=== PATIENT | female | born 1945 | race Caucasian/White ===

== ENCOUNTER 2024-01-06 19:41 | Inpatient (IN) | payer OTHER ==
[2024-01-06] MEDS ORDERED: Ondansetron PF 4 MG/2 ML Vial ONE (20:17)
[2024-01-06 20:37] LABS: #Basophils 0.1 thou/uL (0.0-0.2); #Eosinphils 0.1 thou/uL (0.0-0.7); #Monocytes 0.4 thou/uL (0.11-0.59); #Neutrophils 14.2 thou/uL (1.40-6.50); %Basophils 0.3 % (0.0-1.0); %Eosinophils 0.7 % (0.0-10.0); %Monocytes 2.5 % (0.0-10.0); Hematocrit 39.2 % (36.0-47.0); Hemoglobin 13.2 g/dL (12.0-16.0); Mean Corpuscular HGB CONC 33.7 g/dL (32.0-36.0); Mean Corpuscular Hemoglobin 31.7 pg (27.0-31.0); Mean Platelet Volume 10.1 fL (7.4-10.4); Platelet Count 233 10x3/uL (130-400); RBC Distribution Width 12.1 % (11.5-14.5); Red Blood Cell (RBC) Count 4.17 mill/uL (4.20-5.40); White Blood Cell (WBC) Count 17.4 10x3/uL (4.8-10.8)
[2024-01-06 21:05] LABS: ALT (SGPT) 20 U/L (8-55); AST (SGOT) 31 U/L (5-34); Alkaline Phosphatase 95 U/L (40-110); Anion Gap 18 mmol/L (10-20); BUN (Urea Nitrogen) 21 mg/dL (9.8-20.1); Bilirubin, Total 1.1 mg/dL (0.2-1.2); Calc. Creatinine Clearance 0 mL/min (70-130); Calcium 8.8 mg/dL (7.8-10.44); Carbon Dioxide 18 mmol/L (23-31); Chloride 105 mmol/L (98-107); Estimated GFR 56; Globulin 3.1 g/dL (2.4-3.5); Glucose 213 mg/dL (83-110); Potassium 3.3 mmol/L (3.5-5.1); Protein, Total 7.1 g/dL (5.8-8.1); Sodium 138 mmol/L (136-145)
[2024-01-06] MEDS ORDERED: Acetaminophen 325 MG TAB PO PRN (22:04)
[2024-01-06] MEDS ORDERED: Ondansetron ODT 4 MG TAB PO PRN (22:04)
[2024-01-06] MEDS ORDERED: Loperamide HCl 2 MG CAP ONE (23:26)
[2024-01-07] MEDS: Loperamide HCl 2 MG CAP PO SCH (01:12)
[2024-01-07] MEDS: diphenhydrAMINE 50 MG/ML VIAL IVP SCH (01:12)
[2024-01-07 02:23] VITALS: BMI 27.2
[2024-01-07] MEDS: Levothyroxine Sodium 25 MCG TAB PO SCH (06:23)
[2024-01-07] MEDS ORDERED: Enoxaparin 40 MG (0.4 mL) SYRINGE SC SCH (09:00)
[2024-01-07] MEDS: Potassium Chloride 20 MEQ TAB PO SCH (09:18)
[2024-01-07] MEDS: Famotidine 20 MG TAB PO SCH ×2 (11:59→21:58)
[2024-01-07] MEDS: predniSONE 20 MG TAB PO SCH (11:59)
[2024-01-07] MEDS: Loratadine 10 MG TAB PO SCH (21:57)
[2024-01-08] MEDS: predniSONE 20 MG TAB PO SCH (08:18)
[2024-01-08 08:54] VITALS: BP 119/70; TEMP 98.3
== END 2024-01-08 13:36 | disposition home or self-care (01) | DRG 918 ==
LOC: ERS 19:41 → 2SW 21:42 → OBSVTOIN 01-07 12:37
PROVIDERS: ADMIT Family Medicine; ATTEND Family Medicine
DX: T63.441A Toxic effect of venom of bees, accidental (unintentional), initial encounter (principal); T78.2XXA Anaphylactic shock, unspecified, initial encounter; E03.9 Hypothyroidism, unspecified; D72.829 Elevated white blood cell count, unspecified; E87.6 Hypokalemia; R73.9 Hyperglycemia, unspecified; T38.0X5A Adverse effect of glucocorticoids and synthetic analogues, initial encounter; Y92.89 Other specified places as the place of occurrence of the external cause
CPT/HCPCS: 36415; 80053; 85025; 93005; 96374; J1200; J2405; J7512